=== PATIENT | male | born 1935 | race Caucasian/White ===

== ENCOUNTER → 2016-12-26 | Outpatient (CLI) | payer MEDICARE ==
[~2016-12-26] MED LIST: ADULT LOW DOSE81 MG PO; ARICEPT 5MG TAB5 MG PO; ASPIRIN EC81 MG PO; BED XX; BETAPACE 80MG T80 MG PO; BUMETANIDE 1MG T1 MG PO; CARDIZEM CD300 MG PO; CARVEDILOL3.125 MG PO; DICLOFENAC SOD2.5 ML OP; DITROPAN XL10 M1 PO; DOCUSATE SODIU100 MG PO; DONEPEZIL 5MG TA5 MG PO; DOXAZOSIN2 MG PO; FLEXERIL10 MG PO; LISINOPRIL HCTZ1 TAB PO; MAXZIDE 25 MG-31 TA1 PO; MULTI VITAMINS1 TA1 PO; NAPROSYN 500MG500 MG PO; NORCO 325 MG-51 TAB PO; PANTOPRAZOLE SO40 M1 PO; PLAVIX 75MG TAB75 MG PO; PRAVASTATIN 40M40 MG PO; PREDNISONE 10MG10 MG PO; PREDNISONE 20MG20 MG PO; PRIMIDONE 50 MG50 MG PO; PRIMIDONE250 MG PO; PRIMIDONE50 MG PO; TRAMADOL 50MG T50 MG PO; ULTRAM50 MG PO; XYZAL5 MG PO; [UNRECOGNIZED DRUG - OTHER] OP
[2016-12-26 15:51] LABS: AEROMONAS NOT DETECTED (NOT DETECTE); ASTROVIRUS NOT DETECTED (NOT DETECTE); CYCLOSPORA CAYETANENSIS NOT DETECTED (NOT DETECTE); E COLI O157 NOT DETECTED (NOT DETECTE); ENTEROAGGREGATIVE E COLI NOT DETECTED (NOT DETECTE); ENTEROPATHOGENIC E COLI NOT DETECTED (NOT DETECTE); ENTEROTOXIGENIC E COLI NOT DETECTED (NOT DETECTE); NOROVIRUS NOT DETECTED (NOT DETECTE); SAPOVIRUS NOT DETECTED (NOT DETECTE); SHIGA-LIKE TOXIN PROD. E COLI NOT DETECTED (NOT DETECTE); SHIGELLA/ENTEROINVASIVE E COLI NOT DETECTED (NOT DETECTE); VIBRIO CHOLERAE NOT DETECTED (NOT DETECTE)
== END ==
LOC: LAB 15:50
PROVIDERS: Family Medicine
DX: R19.7 Diarrhea, unspecified (principal)

== ENCOUNTER 2017-01-30 21:41 | Emergency (ER) | payer MEDICARE ==
[~2017-01-30] VITALS: Ht 188 cm; Wt 117.9 kg
[~2017-01-30 21:41] MED LIST changes: -FLEXERIL10 MG PO; -PREDNISONE 20MG20 MG PO
--- NOTE | 2017-01-30 22:15 | Emergency Room Report ---
History of Present Illness Time Seen by [id number] Presenting Problem in Triage Pt arrived:Wheelchair Presenting Problem:Patient went up a ramp in his wheel chair and flipped backwards. He hit his head and is on plavix- states concern of this. Also c/o lumbar pain. 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 N Clinical Suspician of Infection? N Mental Status: 1 - Regular (Normal Baseline) Sepsis Risk:Low Sepsis Risk Have you (or family members/close friends) recently traveled outside the [place]? N If Yes, where/when: Have you had exposure to infectious disease within the past month? N TB? Other? Specify: Source patient, RN notes reviewed, family, old records Exam Limitations no limitations Comment pt fell in wheelchair this pm with upper back pain and spasm but no loc or sz Cardiac Chest Pain Chest pain indicative of cardiac No Timing/Duration this evening Severity moderate ALLERGIES Coded Allergies: No Known Allergies (12/23/15) Home Medications Active Scripts Device (Bed, Hospital) 1 UNIT XX UD #1 DEV Prov: 02/05/16 Reported Medications Pantoprazole Sodium 40 MG PO BID LEVOCETIRIZINE DIHYDROCHLORIDE (Xyzal) 5 MG PO QHS Oxybutynin Chloride (Ditropan XL) 10 MG PO DAILY TRIAMTERENE/HYDROCHLOROTHIAZID (Maxzide 37.5 MG-25 MG Tablet) 1 TAB PO DAILY Primidone (Primidone 250MG) 500 MG PO BID CLOPIDOGREL BISULFATE (PLAVIX) 75 MG PO DAILY Docusate Sodium 100 MG PO PRN PRN CONSTIPATION Tramadol Hcl (Tramadol 50MG) 50 MG PO TIDP PRN PAIN PRAVASTATIN SODIUM (Pravastatin Sodium) 80 MG PO QHS DILTIAZEM HCL (Diltiazem 24HR ER) 300 MG PO DAILY LISINOPRIL/HYDROCHLOROTHIAZIDE (Lisinopril-Hctz 20-25 MG Tab) 1 TAB PO DAILY MULTIVITAMIN (One Daily Multivitamin) 1 TAB PO DAILY Bumetanide (Bumetanide 1MG Tablet) 0.5 MG PO DAILY PRN DIURETIC History Medical History General CAD? Yes Angina: No CA: No Hypertension? Yes Hyperlipidemia? Yes CHF? Yes DVT? No PE? No COPD? No Asthma? No Anemia? Yes GERD? Yes Gastric ulcers? No GI Bleed? Yes Hernia? No Thyroid Problems? No Hypothyroidism? No CVA? No Seizures? No Diabetes? No Renal Insuffiency? Yes End Stage Renal Disease? No UTI? No Stones? No BPH? No GB Disease: No Nephritic Syndrome? No Asplenia? No Hepatitis? No Sickle Cell Disease? No Arthritis? Yes Migraines? No Cataracts? Yes Glaucoma? No MRSA? No HIV? No TB? No Anxiety? No Depression? No Cancer? No More? Yes Additional hx: 1. Osteoarthritis 2. Normal Pressure Hydrocephalus 3. Ischemic Cardiomyopathy Immunization Hx DT/Tetanus 03/29/15 Flu 2014-FSN Pneumonia Received In Past Surgical Hx Previous Surgery?Y OPEN HEART 12 YEARS AGO BILAT KNEE REPLACE 5 YRS NEOPLASMS REMOVED RT HIP STENT PALCEMENT Appendectomy MONICA CATARACTS MONICA PATELLA REPLACEMENT L KNEE REPLACEMENT REPAIR Family History Family Hx Diabetes Yes CAD No Hypertension Yes Hyperlipidemia Yes Cancer No TB No Social History Smoking Hx Smoker: Never Smoker Tobacco: No Packs/day N/A Alcohol Alcohol: No Drugs none Review of Systems All Other Systems Reviewed and Negative Constitutional denies fever Eyes denies drainage ENT denies: ear pain, epistaxis, throat pain. Respiratory denies cough, denies shortness of breath, denies wheezing Cardiovascular denies chest pain, denies palpitations, denies syncope Gastrointestinal denies abdominal pain, denies diarrhea, denies vomiting Genitourinary denies: dysuria, frequency, hesitancy, hematuria. Musculoskeletal see HPI, back pain, joint pain, denies joint swelling, neck pain Skin denies rash Psychiatric/Neurological see HPI, headache, denies seizure Physical Exam Vital Signs Vital Signs Date Time Temp Pulse Resp B/P Pulse O2 O2 Flow FiO2 Ox Delivery Rate 01/30 2305 57 20 148/83 99 01/30 2209 20 01/30 2149 98.8 62 18 192/82 99 - WBC >12,000 or <4,000 or 10% bands? 2 or more SIRS Criteria Met? B/P:148/83 MAP:118 Creatinine >2.0? UA output<0.5ml/kg/hr for 2 hrs? Platelet count >100,000? Lactate >2.0mmol/1? INR >1.2 or PTT > than 60 sec? Evidence of Organ Dysfunction? Provider documented clinical suspician of infection? N Sepsis Criteria Count: 0 Sepsis Risk: Low Sepsis Risk General Appearance no apparent distress Eye Exam - bilateral eye PERRL, bilateral eye EOMI Ear, Nose, Throat normal ENT inspection Neck supple Respiratory Status No: respiratory distress. Lung Sounds bilateral: lungs clear. 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 No Results/Orders Current Medication Orders Sig/Alba Start time Last Medication Dose Route Stop Time Status Admin Cyclobenzaprine HCl 10 MG ONCE ONE 01/31 15 DC 01/31 PO 01/31 001 0012 Dexamethasone Sodium 8 MG ONCE ONE 01/315 DC 01/31 Phosphate IM 02/01 16 0012 Dexamethasone Sodium 0 .STK-MED ONE 01/31 0010 DC Phosphate .ROUTE Cyclobenzaprine HCl 0 .STK-MED ONE 01/31 0009 DC PO Ketorolac 60 MG ONCE ONE 01/30 2215 DC 01/30 Tromethamine IM 01/30 Ketorolac 0 .STK-MED ONE 01/30 2206 DC Tromethamine .ROUTE Orders Procedure Date/time Status DIET-NOTHING BY MOUTH 01/[address] THORACIC SPINE W/O CONTRAST 01/[address] LUMBAR SPINE W/O CONTRAST 01/[address] HEAD W/O CONTRAST 01/[address] CERVICAL SPINE W/O CONT. 01/[address] SCAN REQ 01/30 2207 Complete PELVIS AP ONLY 01/30 2207 Active CHEST-AP VIEW ONLY 01/30 2207 Active XRAY/CT/US XRAY/CT/US 1 XRAY chest, pelvis XR interpretation by reviewed by me Xray Results no fracture seen XRAY/CT/US 2 CT head, C-spine, T-spine, L-spine CT interpretation by discussed w/radiologist Time results known: 0018 CT Results no fracture seen, abnormal Departure Departure Time of Disposition 11 Disposition DC Home or Self Care(routine) Clinical Impression Primary Impression: Cervical strain, acute Qualifiers: Encounter type: initial encounter Qualified Code: S16.1XXA - Strain of muscle, fascia and tendon at neck level, initial encounter Secondary Impressions: Acute thoracic myofascial strain Qualifiers: Encounter type: initial encounter Qualified Code: S29.019A - Strain of muscle and tendon of unspecified wall of thorax, initial encounter Lumbar spine strain Qualifiers: Encounter type: initial encounter Qualified Code: S39.012A - Strain of muscle, fascia and tendon of lower back, initial encounter Condition STABLE Referrals Ilia Harrington MD (Family) discussed with dr harrington Patient Instructions DI for Thoracic Back Pain Additional Instructions ice alt with heat and use meds and see pcp for follow up Discharge Counseling Counseled pt/family regarding diagnosis, test results, medications/RX, follow up needs Prescriptions Current Visit Scripts Prednisone (Prednisone 20MG) 20 MG PO BID #10 TAB Cyclobenzaprine Hcl (Flexeril) 5 MG PO BID #10 TAB ED Critical Care Critical Care No at 0021
[2017-01-31] MEDS ORDERED: PREDNISONE 20MG20 MG PO (00:20)
[2017-01-31] MEDS ORDERED: FLEXERIL10 MG PO (00:20)
[2017-01-31 00:31] VITALS: BP 165/76
--- NOTE | 2017-01-31 04:30 | RADIOLOGY REPORT PS360 ---
CHEST-AP VIEW ONLY HISTORY: Pain following injury fall ORDERING PHYSICIAN: Gabo Handley MD PATIENT AGE: 81 years COMPARISON: 10/09/2016 FINDINGS: There are low lung volumes with underpenetration. There has been a prior median sternotomy. Increased density is present in both mid lung zones probably related to the technique and soft tissue attenuation. Upright PA and lateral views of the chest may confirm if patient can tolerate. Normal heart size. No definite lobar consolidation or collapse. Degenerative changes noted of the shoulders. IMPRESSION: Somewhat limited exam, prior median sternotomy with no definite acute finding..
--- NOTE | 2017-01-31 04:32 | RADIOLOGY REPORT PS360 ---
PELVIS AP ONLY HISTORY: Fall with injury and pain fall ORDERING PHYSICIAN: Gabo Handley MD PATIENT AGE: 81 years COMPARISON: None FINDINGS: Total right hip prosthesis present. The distal aspect of the femoral stem is not visualized on the exam. Moderate osteoarthritic changes involve the left hip. No fracture or dislocation evident. IMPRESSION: No acute finding, osteoarthritis left hip, prior right hip replacement
--- NOTE | 2017-01-31 05:00 | RADIOLOGY REPORT PS360 ---
CT HEAD W/O CONTRAST HISTORY: Posttraumatic headache/injury, hit back of head FALL ORDERING PHYSICIAN: Gabo Handley MD PATIENT AGE: 81 years COMPARISON: 10/09/2016 TECHNIQUE: Axial images obtained without contrast. Brain and bone windows reviewed. FINDINGS: No midline shift, mass effect, intracranial hemorrhage, hydrocephalus, or extra-axial fluid collection is evident. There is diffuse generalized atrophy with mild prominence of the ventricles similar when compared to the previous exam. The calvarium has an unremarkable appearance. No mastoid effusion. The visualized paranasal sinuses are unremarkable. IMPRESSION: 1. No acute intracranial pathology. 2. Generalized atrophy with mild ventriculomegaly.
--- NOTE | 2017-01-31 05:08 | RADIOLOGY REPORT PS360 ---
CT CERVICAL SPINE W/O CONT INDICATION: Neck pain following injury FALL ORDERING PHYSICIAN: First PATIENT AGE: 81 years COMPARISON: 03/29/2015 TECHNIQUE: Axial images are obtained without contrast. Sagittal and coronal reformatted images are reviewed as well. FINDINGS: There is normal alignment. No fracture or dislocation is evident. There is multilevel degenerative disc disease from C2 to T1 with minimal anterolisthesis of C2, C4, and C6. Diffuse facet and uncovertebral arthrosis noted with bilateral foraminal narrowing at C2-C3, C3-C4, severe left-sided foraminal narrowing at C4-C5, severe bilateral foraminal narrowing with canal stenosis C5-C6 with a small right paracentral osteophyte with right lateral recess narrowing. IMPRESSION: 1. No acute fracture. 2. Diffuse spondylosis as described above
--- NOTE | 2017-01-31 05:11 | RADIOLOGY REPORT PS360 ---
CT THORACIC SPINE W/O CONTRAST INDICATION: Posttraumatic pain of the thoracic spine FALL ORDERING PHYSICIAN: Gabo Handley MD PATIENT AGE: 81 years COMPARISON: 03/29/2015 TECHNIQUE: Axial images are obtained without contrast. Sagittal and coronal reformatted images are reviewed as well. FINDINGS: Normal alignment. No fracture or dislocation. Mild multilevel degenerative disc disease with osteophytosis and mild thoracic scoliosis convex right. No lytic or blastic change. IMPRESSION: 1. No acute fracture. 2. Mild diffuse spondylosis as before
--- NOTE | 2017-01-31 05:18 | RADIOLOGY REPORT PS360 ---
CT LUMBAR SPINE W/O CONTRAST CLINICAL INDICATION: Posttraumatic pain, back injury with pain FALL ORDERING PHYSICIAN: Gabo Handley MD PATIENT AGE: 81 years COMPARISON: None TECHNIQUE:Axial, sagittal, and coronal images are generated and reviewed without contrast COMPARISON: None FINDINGS:The alignment. No fracture or dislocation. There is fusion of the L4/L5 vertebral body. Bulging disc with facet and ligamentum flavum hypertrophy at L3-L4. Moderate facet hypertrophic changes are present with transverse canal stenosis and bulging disc at L4-L5. Bulging disc L5-S1 with degenerative disc disease along with moderate facet hypertrophic change. Bilateral foraminal narrowing at L4-5 and L5-S1. There is hypoattenuation involving the left kidney measuring approximately 3 cm nonspecific. Ultrasound may confirm cystic or solid nature. IMPRESSION: 1. No acute fracture. 2. Diffuse spondylosis of the lumbar spine. 3. 3 cm area of hypoattenuation involving the left kidney. CT may confirm cystic or solid nature. Probably unchanged compared to previous chest CT of 02/03/2016
== END 2017-01-31 00:32 | disposition home or self-care (01) ==
LOC: ER 21:41
DX: S16.1XXA Strain of muscle, fascia and tendon at neck level, initial encounter (principal); S29.019A Strain of muscle and tendon of unspecified wall of thorax, initial encounter; S39.012A Strain of muscle, fascia and tendon of lower back, initial encounter; W05.0XXA Fall from non-moving wheelchair, initial encounter; Y92.099 Unspecified place in other non-institutional residence as the place of occurrence of the external cause; I25.10 Atherosclerotic heart disease of native coronary artery without angina pectoris; I10 Essential (primary) hypertension

== ENCOUNTER → 2017-07-27 | Outpatient (CLI) | payer MEDICARE ==
[~2017-07-27] MED LIST changes: +FLEXERIL10 MG PO; +PREDNISONE 20MG20 MG PO
--- NOTE | 2017-07-27 13:07 | RADIOLOGY REPORT PS360 ---
HAND-LT-3 VIEWS HISTORY: ARTHRALGIA OF LEFT HAND ORDERING PHYSICIAN: Ilia Hilton MD PATIENT AGE: 81 years COMPARISON: None FINDINGS: Osteoarthritic changes are present at multiple areas including the first metacarpal carpal joint, first metacarpophalangeal joint, first interphalangeal joint, DIP and PIPs of the digits. No erosive changes are evident. No fracture or dislocation. IMPRESSION: Moderate osteoarthritis of the left hand
== END ==
LOC: RAD 11:30
DX: M25.542 Pain in joints of left hand (principal)

== ENCOUNTER → 2017-09-05 | Outpatient (CLI) | payer MEDICARE ==
--- NOTE | 2017-09-05 13:33 | RADIOLOGY REPORT PS360 ---
KUB (SINGLE VIEW) HISTORY: CONSTIPATION ORDERING PHYSICIAN: Colton Sethi MD PATIENT AGE: 82 years COMPARISON: None FINDINGS: There is a mild amount retained colonic feces with a true within the transverse and proximal descending colon. Mildly distended gas-filled loop of sigmoid colon is present measuring up to 12 mm in diameter. There is not appear to be a large amount of stool within the rectum. There is a total right hip prosthesis present and there are severe osteoarthritic changes of the left hip. IMPRESSION: 1. Mildly distended loop of sigmoid colon. This is nonspecific and does not have a typical appearance for involved ileus. Follow-up may confirm. 2. Mild amount retained colonic feces in the transverse and descending colon 3. No evidence of rectal fecal impaction
== END ==
LOC: RAD 12:12
DX: K59.00 Constipation, unspecified (principal)